=== PATIENT | male | born 1950 | race Caucasian/White ===

== ENCOUNTER 2017-04-11 10:00 | Inpatient (IN) | payer OTHER, MEDICARE ==
[~2017-04-11] VITALS: Ht 172.7 cm; Wt 101.4 kg
[~2017-04-11 10:00] MED LIST: IBUP-1129 PO; METF500T PO; NEUR100C PO; NEXI40CA PO; SIMV40TA PO
[2017-05-23] MEDS ORDERED: ceFAZolin 2 GM PREMIX 50 ML IV SCH (09:00)
[2017-05-23] MEDS ORDERED: CHLORHEXIDINE GLUCONATE 2 % 1 PACK (2 CLOTHS) TOPICAL PRN (09:00)
[2017-05-23] MEDS ORDERED: METOPROLOL TARTRATE 25 MG TAB PO PRN (09:00)
[2017-05-23] MEDS ORDERED: VANCOMYCIN 1000 MG/NS 250 ML (for <70 kg) IV SCH ×2 (09:00)
[2017-05-23] MEDS ORDERED: SODIUM CHLORID 0.9% 500 ML IV PRN (09:00)
[2017-05-23] MEDS ORDERED: POVIDONE IODINE 7.5% SCRUB 118 ML BOTTLE TOPICAL SCH (09:00)
[2017-05-23] MEDS ORDERED: LACTATED RINGER'S 1000 ML IV PRN (09:00)
[2017-05-23] MEDS ORDERED: POVIDONE IODINE 5% (ANTISEPSIS KIT) 4 APPLICATIONS EACH NARE PRN (09:00)
[2017-05-23] MEDS ORDERED: HYDROmorphone HCL PF 2 MG/ML VIAL ONE (10:39)
[2017-05-23] MEDS ORDERED: KETAMINE HCL 500 MG/5 ML VIAL ONE (10:43)
[2017-05-23] MEDS ORDERED: PROPOFOL 200 MG/20 ML AMP ONE ×4 (10:45→10:49)
[2017-05-23] MEDS ORDERED: GENTAMICIN SULFATE 80 MG/2 ML VIAL ONE (10:56)
[2017-05-23] MEDS ORDERED: ARTIFICIAL TEARS OPTH OINT 3.5 APPLIC/3.5 GM TUBO ONE (11:30)
[2017-05-23] MEDS ORDERED: LACTATED RINGER'S 1000 ML INJ 1,000 ML IV ONE (12:00)
[2017-05-23] MEDS ORDERED: NEOSTIGMINE 5 MG/5 ML SYRINGE IV PUSH ONE (12:00)
[2017-05-23] MEDS ORDERED: GLYCOPYRROLATE 1 MG/5 ML SYRINGE IV PUSH ONE (12:00)
[2017-05-23] MEDS ORDERED: ceFAZolin INJ 1,000 MG VIAL IV ONE (12:00)
[2017-05-23] MEDS ORDERED: SODIUM CHLOR 0.9% 1000 ML INJ 1,000 ML IV ONE (12:00)
[2017-05-23] MEDS ORDERED: ROCURONIUM INJ 50 MG/5 ML SYRINGE IV PUSH ONE (12:00)
[2017-05-23] MEDS ORDERED: ePHEDrine/NS 25 MG/5 ML SYRINGE IV ONE (12:00)
[2017-05-23] MEDS ORDERED: DEXAMETHASONE SOD PHOS 4 MG/ML VIAL IV ONE (12:00)
[2017-05-23] MEDS ORDERED: PHENYLEPH/NS 1000 MCG/10 ML SYR IV ONE (12:00)
[2017-05-23] MEDS ORDERED: SODIUM CHLOR 0.9% 250 ML INJ 250 ML IV ONE (12:00)
[2017-05-23] MEDS ORDERED: LIDOCAINE HCL 1% PF 5 ML SYRINGE OTHER ONE (12:00)
[2017-05-23] MEDS ORDERED: ONDANSETRON HCL 4 MG/2 ML VIAL IV ONE (12:00)
[2017-05-23] MEDS ORDERED: BUPIVACAINE/EPINEPHRINE 0.25% PF 30 ML VIAL ONE (12:46)
[2017-05-23] MEDS ORDERED: MIDAZOLAM HCL 2 MG/2 ML VIAL ONE (15:50)
[2017-05-23] MEDS ORDERED: ACETAMINOPHEN 1000 MG/100 ML 100 ML IV ONE (15:52)
[2017-05-23] MEDS ORDERED: ceFAZolin INJ 1,000 MG VIAL ONE (18:20)
[2017-05-23] MEDS ORDERED: VANCOMYCIN HCL 1000 MG VIAL ONE (18:39)
--- NOTE | 2017-05-23 19:44 | HHI.PR ---
cc: Cecy Rapp MD Immediate Post Op Note Procedure Date: May 23, 2017 Pre Op Diagnosis: L3-L5 spinal stenosis L4-L5 spondylolisthesis L4-L5 disc herniation with radiculopathy Post Op Diagnosis: same Surgeon: Cecy Rapp Electrifier Operator(s): None Procedure: L3-L4 laminectomy with partial facetectomy L4 to L5 laminectomy with partial facetectomy L4 to L5 TLIF L4 to L5 posterior lateral fusion Autograft for spine fusion Complications: None Specimen(s) removed: None Estimated blood loss: 3 50 cc Anesthesia: General Drains: Hemovac IVF Patient to: PACU Patient Condition: Good Implant/Devices: SEE IMPLANT LOG (if applicable) Date/Time of Procedure: SEE SURGICAL CARE RECORD Cecy Rapp MD May 23, 2017 19:44
[2017-05-23] MEDS ORDERED: oxyCODONE/ACETAMINOPHEN 5 MG/325 MG TAB PO PRN (20:00)
[2017-05-23] MEDS ORDERED: Post-op Orders (for Pharmacy) XX ONE (20:00)
[2017-05-23] MEDS ORDERED: DO NOT ADM ANY ANTICOAGULANT DRUGS PRN (20:00)
[2017-05-23] MEDS ORDERED: ACETAMINOPHEN 325 MG TAB PO PRN (20:00)
[2017-05-23] MEDS ORDERED: BISACODYL 10 MG SUPP RECTAL PRN (20:00)
[2017-05-23] MEDS ORDERED: SOD PHOSPHATE/SOD BIPHOSPHATE (ADULT) ENEMA 133ML PR PRN (20:00)
[2017-05-23 20:30] VITALS: BP 148/71; PULSE 65; RESP 18; TEMP 96.4; O2SAT 99
--- NOTE | 2017-05-23 20:32 | RADRPT ---
EXAM DATE/TIME: 05/23/2017 15:33 [place] COMPARISON: No previous studies available for comparison. INDICATIONS : Lumbar fusion in the operating room. MEDICAL HISTORY : Non-responsive SURGICAL HISTORY : Non-responsive ENCOUNTER: Initial ACUITY: 1 day PAIN SCORE: Non-responsive. LOCATION: Bilateral lumbar spine FINDINGS: Multiple views of the operating room show discectomy and fusion procedure changes with interbody and posterior instrumentation at L4/L5. Alignment is normal. No acute complication demonstrated. CONCLUSION: Expected intraoperative appearance, L4/L5 fusion. Lai Delgadillo MD on May 23, 2017 at 20:29 Board Certified Radiologist. This report was verified electronically.
[2017-05-23 22:15] VITALS: BP 148/71; PULSE 65; RESP 18; TEMP 96.4; O2SAT 99
[2017-05-23] MEDS: SODIUM CHLORIDE 0.9% FLUSH 10 ML FLUSH IV FLUSH SCH (23:14)
[2017-05-23] MEDS: MORPHINE SULFATE 2 MG/ML INJ IV PUSH PRN (23:14)
[2017-05-23] MEDS: PRAVASTATIN SOD 80 MG TAB PO SCH (23:22)
[2017-05-23] MEDS: oxyCODONE/ACETAMINOPHEN 5 MG/325 MG TAB PO PRN (23:43)
[2017-05-24 00:59] VITALS: BP 118/62; PULSE 71; RESP 18; TEMP 96.7; O2SAT 95
[2017-05-24 03:44] VITALS: BP 106/58; PULSE 67; RESP 18; TEMP 96.7; O2SAT 97
[2017-05-24] MEDS: SODIUM CHLORIDE 0.9% FLUSH 10 ML FLUSH IV FLUSH PRN ×2 (04:10→23:42)
[2017-05-24] MEDS: MORPHINE SULFATE 2 MG/ML INJ IV PUSH PRN ×4 (04:10→23:42)
[2017-05-24] MEDS: oxyCODONE/ACETAMINOPHEN 5 MG/325 MG TAB PO PRN ×3 (06:00→20:25)
--- NOTE | 2017-05-24 07:14 | PD.ORT.PN ---
Subjective Subjective Remarks Patient is awake in no distress. Reports his pain relatively well controlled. Does report left leg symptoms overnight which are very started to improve. Denies any shortness of breath or chest pain. Denies any nausea or vomiting. Denies any headaches. Objective Vitals Vital Signs Date Time Temp Pulse Resp B/P (MAP) Pulse Ox O2 Delivery O2 Flow Rate FiO2 05/24/17 03:44 96.7 67 18 106/58 (74) 97 05/24/17 00:59 96.7 71 18 118/62 (80) 95 05/23/17 22:15 96.4 65 18 148/71 (96) 99 05/23/17 21:45 67 18 157/81 (106) 98 Nasal Cannula 2 05/23/17 21:30 65 17 156/81 (106) 98 Nasal Cannula 2 05/23/17 21:15 64 20 156/77 (103) 99 Nasal Cannula 2 05/23/17 21:00 62 15 157/79 (105) 99 Nasal Cannula 2 05/23/17 20:45 62 17 155/75 (101) 97 Nasal Cannula 2 05/23/17 20:30 60 13 148/74 (98) 98 Nasal Cannula 2 05/23/17 20:15 55 12 129/76 (93) 100 Nasal Cannula 2 05/23/17 20:00 98.0 62 18 132/81 (98) 100 Nasal Cannula 2 05/23/17 09:35 97.9 65 18 151/85 (107) 97 I/O 05/23/17 05/23/17 05/23/17 05/24/17 05/24/17 05/24/17 06:59 14:59 22:59 06:59 14:59 22:59 Intake Total 3000 ml 240 ml Output Total 1175 ml 180 ml Balance 1825 ml 60 ml Intake Oral 240 ml IV Total 200 ml Other 2800 ml Output Urine Total 725 ml Drainage Total 100 ml 180 ml Other 350 ml # Voids 0 # Bowel Movements 0 Objective Remarks Awake, alert, no acute distress Nonlabored respirations Bilateral lower extremities: 5 out of 5 strength with EHL, FHL, dorsiflexion, plantar flexion, quadriceps and hamstrings. Sensation intact throughout. Brisk cap refill. Negative Homans. Dressing intact. Drain remains in place. Assessment & Plan Assessment and Plan 66-year-old man who is now POD#1 status post L3 to L5 decompression with L4 to L5 posterior instrumented fusion, doing well. 1. Pain control with IV and oral pain medications as needed. Continue current regimen. 2. Dressing to remain in place. At this time drain output is slightly higher than I would like to see prior to removing drain. We will leave drain in place for 1 more day with plan to likely remove tomorrow morning. 3. Griffin has very been removed. 4. DVT prophylaxis with mechanical SCDs and pads. No chemical anticoagulation given recent spine surgery. 5. PT for mobilization. Discussed with patient that he should limit his bending, twisting and lifting. Cecy Rapp MD May 24, 2017 07:14
[2017-05-24 08:00] VITALS: BP 99/51; PULSE 91; RESP 18; TEMP 96.4; O2SAT 97
[2017-05-24] MEDS: metFORMIN HCL 500 MG TAB PO SCH (09:02)
[2017-05-24] MEDS: SODIUM CHLORIDE 0.9% FLUSH 10 ML FLUSH IV FLUSH SCH ×2 (09:02→20:24)
[2017-05-24] MEDS: GABAPENTIN 100 MG CAP PO SCH ×3 (09:03→17:17)
[2017-05-24] MEDS: MULTIVITAMINS/MINERALS THERAPEUTIC TAB PO SCH ×2 (09:04→20:24)
[2017-05-24] MEDS: PANTOPRAZOLE SOD 40 MG DELAYED RELEASE TAB PO SCH (09:04)
[2017-05-24 12:00] VITALS: BP 116/65; PULSE 85; RESP 18; TEMP 95.9; O2SAT 97
[2017-05-24 16:00] VITALS: BP 121/64; PULSE 78; RESP 18; TEMP 96.3; O2SAT 98
[2017-05-24] MEDS: ONDANSETRON HCL 4 MG/2 ML VIAL IV PUSH PRN (17:16)
[2017-05-24 20:15] LABS: HEMATOCRIT 36.1 % (39.0-51.0); HEMOGLOBIN 12.1 GM/DL (13.0-17.0)
[2017-05-24] MEDS: DOCUSATE SODIUM 100 MG CAP PO SCH (20:24)
[2017-05-24] MEDS: PRAVASTATIN SOD 80 MG TAB PO SCH (20:24)
[2017-05-24 21:25] VITALS: BP 118/70; PULSE 74; RESP 18; TEMP 97.7; O2SAT 96
[2017-05-25 00:20] VITALS: BP 96/62; PULSE 74; RESP 18; TEMP 96.9; O2SAT 98
[2017-05-25] MEDS: SODIUM CHLORIDE 0.9% FLUSH 10 ML FLUSH IV FLUSH PRN (03:43)
[2017-05-25] MEDS: oxyCODONE/ACETAMINOPHEN 5 MG/325 MG TAB PO PRN ×4 (03:43→19:17)
[2017-05-25] MEDS: ONDANSETRON HCL 4 MG/2 ML VIAL IV PUSH PRN (03:43)
[2017-05-25] MEDS: MORPHINE SULFATE 2 MG/ML INJ IV PUSH PRN (06:27)
--- NOTE | 2017-05-25 07:02 | PD.ORT.PN ---
Subjective Subjective Remarks Patient is awake in no distress. Patient reports his leg symptoms have significantly improved since preop. He reports back ache and muscle pain. Denies any shortness of breath or chest pain. Denies any nausea or vomiting. Denies any headaches. Objective Vitals Vital Signs Date Time Temp Pulse Resp B/P (MAP) Pulse Ox O2 Delivery O2 Flow Rate FiO2 05/25/17 00:20 96.9 74 18 96/62 (73) 98 05/24/17 21:25 97.7 74 18 118/70 (86) 96 05/24/17 16:00 96.3 78 18 121/64 (83) 98 05/24/17 12:00 95.9 85 18 116/65 (82) 97 05/24/17 08:00 96.4 91 18 99/51 (67) 97 I/O 05/24/17 05/24/17 05/24/17 05/25/17 05/25/17 05/25/17 07:00 15:00 23:00 07:00 15:00 23:00 Intake Total 240 ml 480 ml 680 ml Output Total 180 ml 750 ml 90 ml 100 ml Balance 60 ml -270 ml 590 ml -100 ml Intake Oral 240 ml 480 ml 680 ml Output Urine Total 550 ml Drainage Total 180 ml 200 ml 90 ml 100 ml # Voids 0 2 # Bowel Movements 0 0 0 Result Diagram: 05/24/171921 Objective Remarks Awake, alert, no acute distress Nonlabored respirations Bilateral lower extremities: 5 out of 5 strength with EHL, FHL, dorsiflexion, plantar flexion, quadriceps and hamstrings. Sensation intact throughout. Brisk cap refill. Negative Homans. Dressing intact. Drain remains in place. Assessment & Plan Assessment and Plan 66-year-old man who is now POD#2 status post L3 to L5 decompression with L4 to L5 posterior instrumented fusion, doing well. 1. Pain control with IV and oral pain medications as needed. Adjusted oxycodone to be every 4. 2. Dressing to remain in place. At this time drain output is slightly higher than I would like to see prior to removing drain. I took this dissection off the drain and placed to gravity at this time. We will leave in for another 6 hours and remove around noon today. 3. Griffin has very been removed. Urinating without significant difficulty. 4. DVT prophylaxis with mechanical SCDs and pads. No chemical anticoagulation given recent spine surgery. 5. PT for mobilization. Discussed with patient that he should limit his bending, twisting and lifting. I encourage patient to work with therapy on mobilizing to safely get to the bathroom and walk several steps. 6. Plan is for discharge home later today pending progress with PT. Patient does have his at home for assistance. Cecy Rapp MD May 25, 2017 07:02
[2017-05-25] MEDS ORDERED: OXYC1TAB63 PO (07:04)
[2017-05-25] MEDS ORDERED: CYCL10TA PO (07:06)
[2017-05-25 08:00] VITALS: BP 92/51; PULSE 78; RESP 18; TEMP 96.9; O2SAT 97
[2017-05-25] MEDS ORDERED: WALKER WHEELS/F1 MIS (08:00)
[2017-05-25] MEDS: SODIUM CHLORIDE 0.9% FLUSH 10 ML FLUSH IV FLUSH SCH ×2 (09:00→21:00)
[2017-05-25] MEDS: PANTOPRAZOLE SOD 40 MG DELAYED RELEASE TAB PO SCH (09:47)
[2017-05-25] MEDS: GABAPENTIN 100 MG CAP PO SCH ×3 (09:48→18:17)
[2017-05-25] MEDS: metFORMIN HCL 500 MG TAB PO SCH (09:48)
[2017-05-25] MEDS: CYCLOBENZAPRINE HCL 10 MG TAB PO PRN ×2 (09:48→19:17)
[2017-05-25] MEDS: MULTIVITAMINS/MINERALS THERAPEUTIC TAB PO SCH ×2 (09:48→20:50)
[2017-05-25] MEDS: DOCUSATE SODIUM 100 MG CAP PO SCH ×2 (09:48→20:50)
[2017-05-25 12:00] VITALS: BP 114/67; PULSE 87; RESP 18; TEMP 96.9; O2SAT 99
[2017-05-25 16:00] VITALS: BP 102/69; PULSE 93; RESP 18; TEMP 97.7; O2SAT 93
[2017-05-25 20:00] VITALS: BP 147/85; PULSE 95; RESP 16; TEMP 97.3; O2SAT 91
[2017-05-25] MEDS: PRAVASTATIN SOD 80 MG TAB PO SCH (20:50)
[2017-05-26] VITALS: BP 118/74; PULSE 94; RESP 16; TEMP 97; O2SAT 100
[2017-05-26 04:00] VITALS: BP 120/67; PULSE 89; RESP 16; TEMP 96.9; O2SAT 93
[2017-05-26] MEDS: oxyCODONE/ACETAMINOPHEN 5 MG/325 MG TAB PO PRN ×3 (04:43→13:26)
[2017-05-26] MEDS: DOCUSATE SODIUM 100 MG CAP PO SCH (08:58)
[2017-05-26] MEDS: metFORMIN HCL 500 MG TAB PO SCH (08:58)
[2017-05-26] MEDS: PANTOPRAZOLE SOD 40 MG DELAYED RELEASE TAB PO SCH (08:59)
[2017-05-26] MEDS: MULTIVITAMINS/MINERALS THERAPEUTIC TAB PO SCH (08:59)
[2017-05-26] MEDS: GABAPENTIN 100 MG CAP PO SCH ×2 (08:59→13:26)
[2017-05-26] MEDS: SODIUM CHLORIDE 0.9% FLUSH 10 ML FLUSH IV FLUSH SCH (09:00)
--- NOTE | 2017-05-26 12:18 | PD.ORT.PN ---
Subjective Subjective Remarks Patient is awake in no distress. Patient reports his leg symptoms have significantly improved since preop. He reports his back pain has significantly improved with muscle relaxers. Denies any shortness of breath or chest pain. Denies any nausea or vomiting. Denies any headaches. Objective Vitals Vital Signs Date Time Temp Pulse Resp B/P (MAP) Pulse Ox O2 Delivery O2 Flow Rate FiO2 05/26/17 04:00 96.9 89 16 120/67 (84) 93 05/26/17 00:00 97.0 94 16 118/74 (89) 100 05/25/17 20:00 97.3 95 16 147/85 (105) 91 05/25/17 16:00 97.7 93 18 102/69 (80) 93 I/O 05/25/17 05/25/17 05/25/17 05/26/17 05/26/17 05/26/17 07:00 15:00 23:00 07:00 15:00 23:00 Intake Total 960 ml 400 ml Output Total 100 ml 500 ml 600 ml Balance -100 ml 460 ml -200 ml Intake Oral 960 ml 400 ml Output Urine Total 500 ml 600 ml Drainage Total 100 ml # Voids 2 # Bowel Movements 0 Result Diagram: 05/24/171921 Objective Remarks Awake, alert, no acute distress Nonlabored respirations During exam, patient able to transition from lying supine to upright and walks from bed to bedside chair. He requires minimal assistance to do this. Bilateral lower extremities: 5 out of 5 strength with EHL, FHL, dorsiflexion, plantar flexion, quadriceps and hamstrings. Sensation intact throughout. Brisk cap refill. Negative Homans. Dressing intact. Assessment & Plan Assessment and Plan 66-year-old man who is now POD#3 status post L3 to L5 decompression with L4 to L5 posterior instrumented fusion, doing well. 1. Pain well controlled at present. We'll continue with Percocet and Flexeril on discharge. 2. Dressing to remain in place. Drain removed yesterday. 3. Griffin has very been removed. Urinating without significant difficulty. 4. DVT prophylaxis with mechanical SCDs and pads. No chemical anticoagulation given recent spine surgery. 5. PT for mobilization. Discussed with patient that he should limit his bending, twisting and lifting. 6. Plan is for discharge home today. Patient should follow-up in my office in 2 weeks as scheduled. Cecy Rapp MD May 26, 2017 12:18
[2017-05-26] MEDS: CYCLOBENZAPRINE HCL 10 MG TAB PO PRN (13:26)
--- NOTE | 2017-06-05 15:17 | PD.OP ---
cc: Cecy Rapp MD Operative Report Date of Surgery: May 23, 2017 Preoperative Diagnosis: 1. L3-L4, L4-L5 spinal stenosis 2. L4-L5 spondylolisthesis 3. L4-L5 disc herniation with radiculopathy Postoperative Diagnosis: same Procedure: 1. L3-L4 laminectomy with foraminotomy and partial facetectomy 2. L4-L5 laminectomy with foraminotomy and partial facetectomy 3. L4-L5 combined interbody and posterior lateral arthrodesis, with transforaminal interbody at L4-L5 4. L4-L5 posterior segmental instrumentation with bilateral pedicle screws at L4 and L5 5. Application of allograft, morselized 6. Application of local autograft, morselized from same incision Surgeon: Cecy Rapp Air Quality Instrument Specialist(s): none Operation and Findings: EBL: 350 cc Complications: None Specimens: None Indications for procedure: Patient is a 66-year-old gentleman with lumbar spondylosis with spondylolisthesis and radiculopathy with large paracentral left -sided L4-5 disc herniation with extrusion. Patient has had persistent symptoms refractory to nonoperative treatment for the last several months, including anti -inflammatories, gabapentin, and activity modification. In regards to surgery, I recommended an L4-5 decompression with instrumented fusion along with an L3-4 decompression. I explained to the patient that given he has noted instability on imaging at L4-5 I would not recommend decompression alone. I discussed with the patient the option of continuing with nonoperative management in the form of medications and injections physical therapy and activity modification. Patient does not feel that this is a viable option at this time. Patient is interested in pursuing surgery. Risks of surgery including, but not limited to : infection, bleeding, damage to neurovascular structures, weakness, paralysis, CSF leak, malposition or failure of hardware, pseudoarthrosis, need for further surgery, adjacent segment disease, and other unforeseen complications. I explained to the patient that surgery is not a guarantee and that his symptoms could improve worsen or stay the same. Patient has voiced understanding of all of these options and risks and would like to pursue surgical management. Description of procedure: Patient was brought back to the operating room. General anesthesia then ensued. A urinary catheter was placed and monitoring leads were placed. Patient was then placed prone on the operating room table with all bony prominences well-padded. Patient was prepped and draped in standard sterile fashion. Preoperative antibiotics were given within 1 hour of incision. A timeout was performed to identify the correct patient, side, site and procedure to be performed. Fluoroscopy was utilized to identify midline incision site over L3-L5. A midline incision was then performed with dissection meticulously down over his paraspinals with placement of deep retractors. The levels for instrumentation L4 and L5 were identified and the laminas, pars, and transverse processes identified. For the lumbar pedicle screws, I utilized a starting point at the midpoint of the transverse process and the lateral aspect of the facet joint. Each pedicle was cannulized with a Lenke-type pedicle probe. The pedicles were subsequently tapped. The pedicles were probed to ensure there were bone confines around all the screws. Then appropriate pedicle screws were placed into each pedicle. The screws were verified on AP and lateral radiographs. The pedicle screws were subsequently stimulated with neuromonitoring with greater than 20 mA potentials, without adverse EMG changes. I then turned my attention to the decompression. I drilled bilateral laminectomy troughs and then utilize a Leksell rongeur and removed the bulk of the dorsal bone, including spinous process and laminas. This bone was then prepared on the back table and morselized for bone graft. Once the central decompression was completed, lateral recess decompression was carried out with Kerrison rongeurs at both L3-4 and L4-5 by undercutting the medial aspect of the superior articular facet and removing the hypertrophic facet and capsular tissue. At this time, the L3 exiting and the L4 traversing nerve roots appeared to be free of compression. I then turned my attention to the left sided transforaminal interbody fusion. The L4-5 facet on the left was removed with the use of Leksell rongeur and osteotome. I then identified the exiting L4 and traversing L5 nerve roots. The L4-5 disc space was distracted with the use of the pedicle screws. The bleeding epidural vessels around the disc space were cauterized with a bipolar. A box annulotomy was then created. The disc space was cleaned and debrided of disc material and the endplates prepared with the use of subsequent ángel, curettes, and pituitaries. The disc space was templated for an interbody device. The disc space was thoroughly irrigated. Autograft was placed into the disc space and placed ventrally to allow the interbody device to be placed posterior to it. The interbody device was then filled with autograft and allograft bone and tapped into the disc space. This was found to be in the anterior two thirds of the disc space and past midline on AP and lateral radiographs. At this point the exiting and traversing nerve roots at L4-5 was found to be free of compression on both the left and the right side. A bent 3 [place] was able to be passed out easily into bilateral foramen at L3, L4 and L5. Small rods were then placed between L4-5 pedicle screws bilaterally with locking caps placed and final tightened. At this time, the wound was thoroughly irrigated. Hemostasis was achieved. A deep drain was placed below the fascia. The transverse process of L4 and L5 bilaterally were decorticated and autograft and allograft bone was placed for posterior lateral fusion. 1 g of vancomycin powder was then placed into the wound. The fascia was then closed with interrupted Vicryl sutures. The subcutaneous tissue was then closed with Vicryl sutures followed by nylon sutures for skin. Sterile dressings were then applied. Patient was then transferred from the operating room table supine onto a bed. Patient was awoken from general anesthesia without complication. It should be noted that the patient remained hemodynamically stable without any adverse neural monitoring changes throughout the entire procedure. Cecy Rapp MD Jun 05, 2017 15:17
== END 2017-05-26 14:31 | disposition home or self-care (01) | DRG 460 ==
LOC: HSDI 05-23 08:15 → N06A 05-23 22:22
PROVIDERS: ADMIT Orthopaedic Surgery Orthopaedic Surgery of the Spine; ATTEND Orthopaedic Surgery Orthopaedic Surgery of the Spine
PROC: 01NB0ZZ Release Lumbar Nerve, Open Approach (ICD-10-PCS; 2017-05-23)
PROC: 0ST20ZZ Resection of Lumbar Vertebral Disc, Open Approach (ICD-10-PCS; 2017-05-23)
PROC: 0QU007Z Supplement Lumbar Vertebra with Autologous Tissue Substitute, Open Approach (ICD-10-PCS; 2017-05-23)
PROC: 0SG10AJ Fusion of 2 or more Lumbar Vertebral Joints with Interbody Fusion Device, Posterior Approach, Anterior Column, Open Approach (ICD-10-PCS; principal; 2017-05-23 13:04)
DX: M48.061 Spinal stenosis, lumbar region without neurogenic claudication (principal); E11.8 Type 2 diabetes mellitus with unspecified complications; Z79.84 Long term (current) use of oral hypoglycemic drugs; M51.16 Intervertebral disc disorders with radiculopathy, lumbar region; M43.16 Spondylolisthesis, lumbar region; E78.00 Pure hypercholesterolemia, unspecified
CPT/HCPCS: 72100; 76000; 85014; 85018; J0131; J0690; J1100; J1170; J1580; J2250; J2270; J2370; J2405; J2710; J3010; J3370; J7030; J7050; J7120